=== PATIENT | female | born 1960 | race Caucasian/White ===

== ENCOUNTER 2021-03-01 08:55 | Emergency (ER) | payer OTHER ==
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
--- NOTE | 2021-03-01 10:10 | CR ---
Hip Min 2V or 3V w Pelvis Lt CLINICAL HISTORY: Fall FINDINGS: No fracture or dislocation seen. There is some acetabular spurring IMPRESSION: Mild degenerative change No fracture
--- NOTE | 2021-03-01 10:13 | CR ---
Foot Comp Min 3V Lt CLINICAL HISTORY: Pain, fall FINDINGS: There is a nondisplaced transverse fracture through the base of the fifth metatarsal. IMPRESSION: Fracture base fifth metatarsal Lt, Ankle Min 3V Lt CLINICAL HISTORY: Pain, fall FINDINGS: The soft tissues are swollen laterally. No acute fracture or dislocation is noted. Ankle mortise is intact. There is a fracture to the base of the fifth metatarsal. There is a tiny ossific density off the tip of the fibula. This most likely represents a secondary ossification center. Small avulsion not excluded Impression: Tiny ossification center versus small avulsion off the tip of the distal fibula
== END 2021-03-01 10:44 | disposition home or self-care (01) ==
LOC: JP.ED 08:55
DX: S92.355A Nondisplaced fracture of fifth metatarsal bone, left foot, initial encounter for closed fracture (principal); Z88.0 Allergy status to penicillin; Z72.0 Tobacco use; Z79.899 Other long term (current) drug therapy; W19.XXXA Unspecified fall, initial encounter
CPT/HCPCS: 73502-26-LT; 73502-LT; 73610-26-LT; 73610-LT; 73630-26-LT; 73630-LT; 99283-25